=== PATIENT | female | born 1955 | race Caucasian/White ===

== ENCOUNTER 2022-09-28 08:01 | Inpatient (IN) | payer MEDICAID ==
[~2022-09-28] VITALS: Ht 162.6 cm; Wt 59.6 kg
[2022-09-28] MEDS ORDERED: ASPIRIN 325MG EC TABLET PO ONE (09:00)
[2022-09-28] MEDS ORDERED: IOHEXOL-350 100 ML BOTTLE ONE (09:20)
[2022-09-28 09:24] LABS: CHLORIDE 105 mEq/L (98-107)
[2022-09-28 09:31] LABS: BASOPHILS % 0.4 % (0.0-2.0); EOSINOPHILS % 0.1 % (0.0-5.0); HEMATOCRIT. 40.9 % (36.0-48.0); LYMPHOCYTES % 19.6 % (20.0-50.0); MEAN CORPUSCULAR VOLUME 76.1 fL (81.0-99.0); MEAN PLATELET VOLUME 8.8 fl (7.4-10.4); MONOCYTES % 13.9 % (2.0-8.0); PLATELET 122 x1000/uL (130-400); RED BLOOD CELL COUNT 5.38 mill/uL (4.2-5.4)
[2022-09-28 09:35] LABS: ETHANOL BLOOD < 10 mg/dL
[2022-09-28 10:21] LABS: INR 1.2; PROTHROMBIN TIME 12.7 sec (9.6-11.0)
[2022-09-28] MEDS ORDERED: CLONIDINE 0.1MG TABLET PO PRN (10:45)
[2022-09-28] MEDS ORDERED: KETOROLAC 15MG/ML VIAL IV PRN (10:45)
[2022-09-28] MEDS ORDERED: ONDANSETRON HCL 4MG/2ML INJ IV PRN (10:45)
[2022-09-28] MEDS ORDERED: DOCUSATE SODIUM 100MG CAPSULE PO PRN (10:45)
[2022-09-28] MEDS ORDERED: NITROGLYCERIN 0.4MG TABLET SL SL PRN (10:45)
[2022-09-28] MEDS ORDERED: GUAIFENESIN 200MG/10ML SUGAR FREE UDC PO PRN (10:45)
[2022-09-28] MEDS ORDERED: IPRATROPIUM/ALBUTEROL 0.5-3(2.5)MG/3ML NEB NEB PRN (10:45)
[2022-09-28] MEDS ORDERED: MAGNESIUM/ALUMINUM HYDROXIDE/SIMETHICONE 30ML UDC PO PRN (10:45)
[2022-09-28] MEDS ORDERED: ACETAMINOPHEN 325MG TABLET PO PRN ×2 (10:45)
[2022-09-28] MEDS ORDERED: NA PHOS,M-B/NA PHOS,DI-BA ENEMA 118ML PR PRN (10:45)
[2022-09-28] MEDS: FAMOTIDINE 20MG TABLET PO SCH ×2 (11:00→21:00)
[2022-09-28] MEDS: ENOXAPARIN 40MG/0.4ML SYR SUBCUT SCH (11:00)
[2022-09-28 13:04] LABS: HDL CHOLESTEROL 31 mg/dL (40-59); LDL CHOLESTEROL 73 mg/dL (5-100); T4 FREE 3.06 ng/dL (0.76-1.46); TOTAL IRON BINDING CAPACITY 262 ug/dL (250-450)
[2022-09-28 14:04] LABS: VITAMIN B12 SERUM 250 pg/mL (211-911)
[2022-09-28 15:25] LABS: CREATINE KINASE MB FRACTION 1.4 ng/mL (0.5-3.6)
[2022-09-28 18:26] VITALS: BP 146/68
[2022-09-28] MEDS ORDERED: INFLUENZA VACCINE 05/PF 0.5 ML SYRINGE IM ONE (19:45)
[2022-09-28] MEDS ORDERED: PNEUMOCOCCAL 23-VAL P-SAC VAC 0.5 ML IM ONE (19:45)
[2022-09-28 20:00] VITALS: BP_SYST 101; BP_SYST 139; BP_DIAS 63; BP_DIAS 67
[2022-09-28] MEDS ORDERED: ZOLPIDEM TARTRATE 5MG TABLET PO PRN (21:00)
[2022-09-29] VITALS: BP 108/75
[2022-09-29 00:33] LABS: CREATINE KINASE MB FRACTION 1.8 ng/mL (0.5-3.6)
[2022-09-29 04:00] VITALS: BP 109/70
[2022-09-29 07:32] LABS: CHLORIDE 106 mEq/L (98-107)
[2022-09-29 07:48] LABS: PHOSPHORUS 2.6 mg/dL (2.5-4.9)
[2022-09-29 08:00] VITALS: BP 141/71
[2022-09-29 08:14] LABS: BASOPHILS % 0.4 % (0.0-2.0); EOSINOPHILS % 0.9 % (0.0-5.0); LYMPHOCYTES % 22.1 % (20.0-50.0); MEAN CORPUSCULAR HEMOGLOBIN 26.3 pg (28.0-32.0); MEAN CORPUSCULAR VOLUME 76.9 fL (81.0-99.0); MEAN PLATELET VOLUME 9.1 fl (7.4-10.4); NEUTROPHILS % 64.6 % (40.0-76.0); PLATELET 139 x1000/uL (130-400); RED BLOOD CELL COUNT 5.33 mill/uL (4.2-5.4); RED CELL DISTRIBUTION WIDTH 15.2 % (11.6-14.6)
[2022-09-29] MEDS: ASPIRIN 325MG EC TABLET PO SCH (08:33)
[2022-09-29] MEDS: FAMOTIDINE 20MG TABLET PO SCH ×2 (08:33→21:00)
[2022-09-29] MEDS: ENOXAPARIN 40MG/0.4ML SYR SUBCUT SCH (11:10)
[2022-09-29 12:00] VITALS: BP 129/51
[2022-09-29] MEDS: FERROUS SULFATE 300MG/5ML UDC PO SCH (15:04)
[2022-09-29 16:43] VITALS: BP 138/64
[2022-09-29 20:00] VITALS: BP 153/60
[2022-09-30] VITALS: BP 139/59
[2022-09-30] MEDS ORDERED: DEXTROSE 50% WATER 50ML SYRINGE IV PRN (02:45)
[2022-09-30 04:00] VITALS: BP 125/56
[2022-09-30 07:18] LABS: HEMATOCRIT 39.8 % (36.0-48.0); HEMOGLOBIN 13.9 g/dL (12.0-16.0); MEAN CORPUSCULAR HEMOGLOBIN 26.6 pg (28.0-32.0); MEAN CORPUSCULAR VOLUME 76.1 fL (81.0-99.0); PLATELET 174 x1000/uL (130-400); RED BLOOD CELL COUNT 5.24 mill/uL (4.2-5.4); RED CELL DISTRIBUTION WIDTH 15.6 % (11.6-14.6)
[2022-09-30 07:20] LABS: CHLORIDE 105 mEq/L (98-107)
[2022-09-30 08:00] VITALS: BP 122/55
[2022-09-30] MEDS: INSULIN LISPRO 100 UNITS/ML SUBCUT SCH ×3 (08:10→17:22)
[2022-09-30] MEDS: BLOOD SUGAR DIAGNOSTIC STRIP TEST SCH ×3 (08:33→17:22)
[2022-09-30] MEDS: ASPIRIN 325MG EC TABLET PO SCH (08:44)
[2022-09-30] MEDS: FAMOTIDINE 20MG TABLET PO SCH (08:44)
[2022-09-30] MEDS: FERROUS SULFATE 300MG/5ML UDC PO SCH (08:44)
[2022-09-30] MEDS ORDERED: ATOR10TA MT (09:29)
[2022-09-30] MEDS ORDERED: ASPI-1406 MT (09:29)
[2022-09-30] MEDS: ENOXAPARIN 40MG/0.4ML SYR SUBCUT SCH (11:38)
[2022-09-30 12:00] VITALS: BP 118/59
[2022-09-30 14:40] VITALS: BP 118/59
[2022-09-30 16:00] VITALS: BP 119/55
== END 2022-09-30 18:20 | disposition home or self-care (01) | DRG 47 ==
LOC: ER 08:01 → 7WST 09:46 → EDBEDREQ 09:49 → EDBEDREQTM 09:49 → EDBEDREQSVC 09:49 → ENRESERV 15:55
PROVIDERS: ADMIT Internal Medicine; ATTEND Internal Medicine
DX: G45.9 Transient cerebral ischemic attack, unspecified (principal); D69.6 Thrombocytopenia, unspecified; E44.0 Moderate protein-calorie malnutrition; E88.09 Other disorders of plasma-protein metabolism, not elsewhere classified; G81.91 Hemiplegia, unspecified affecting right dominant side; E05.90 Thyrotoxicosis, unspecified without thyrotoxic crisis or storm; R73.9 Hyperglycemia, unspecified; E80.6 Other disorders of bilirubin metabolism; E61.1 Iron deficiency; Z79.82 Long term (current) use of aspirin; Z68.22 Body mass index [BMI] 22.0-22.9, adult; R29.708 NIHSS score 8
CPT/HCPCS: 36415; 70496; 70498; 70551; 71045; 80048; 80053; 80061; 80320; 82550; 82553; 82607; 82746; 82962; 83036; 83540; 83550; 83735; 84100; 84439; 84443; 84484; 85025; 85027; 90686; 90732; 93005; 93306; 93970; 99291; C1893; J1650; Q9967; G0480